=== PATIENT | female | born 1960 | race Caucasian/White ===

== ENCOUNTER 2016-08-12 09:22 | Emergency (ER) | payer BC ==
[~2016-08-12] VITALS: Wt 78.0 kg
[~2016-08-12 09:22] MED LIST: ACET325T33 PO; ACET500C5 PO; CIPR500T4 PO; ELEC100080 PO; FAMO-18 PO; HYD25 PO; HYDR-3498 PO; HYDR12.58 PO; ONDA4TAB8 PO; SIMV20TA6 PO; SODI44SP11 NS
[2016-08-12] MEDS ORDERED: KETOROLAC 30 MG INJ IM STA (10:08)
[2016-08-12 10:47] LABS: ADD UMIC YES; URINE BILIRUBIN (Dip) NEGATIVE (NEGATIVE); URINE BLOOD (Dip) TRACE (NEGATIVE); URINE COLOR LT. YELLOW (YELLOW); URINE GLUCOSE (Dip) NEGATIVE (NEGATIVE); URINE KETONES (Dip) NEGATIVE (NEGATIVE); URINE LEUKOCYTE ESTERASE (Dip) 2+ (NEGATIVE); URINE NITRITE (Dip) NEGATIVE (NEGATIVE); URINE TOTAL PROTEIN (Dip) NEGATIVE (NEGATIVE); URINE UROBILINOGEN (Dip) 0.2 E.U./dL (0.1-1.0)
[2016-08-12 10:56] LABS: URINE RBCS 0-2 /HPF (0)
--- NOTE | 2016-08-12 11:04 | RADRPT ---
PROCEDURE: CT Abdomen and Pelvis without contrast. CLINICAL INDICATION: Right lower quadrant abdominal pain for 3 days. TECHNIQUE: Multiple contiguous axial CT images of the abdomen and pelvis were obtained without the administration of intravenous contrast. Coronal and sagittal reconstructions were also performed. CTDIvol (mGy): 15.91; Total Exam DLP (mGy-cm): 824.52. One or more of the following dose reduction techniques were utilized: - Automated exposure control. - Adjustment of the mA and/or kV according to patient size. - Use of iterative reconstruction technique. COMPARISON: 04/06/2015. FINDINGS: Limited imaging of the lower thorax is unremarkable. The liver and spleen are homogeneous in density aside from a small parenchymal calcification within the medial segment of the left hepatic lobe, which is unchanged and benign. The gallbladder, pancre as and adrenal glands are unremarkable aside from minimal calcification within the left adrenal glan d, which is unchanged. The kidneys are symmetric in size. There are no nephroureteral stones. There is no hydronephrosis o r abnormal perinephric inflammation. The abdominal aorta is normal in caliber. There is no periaortic / retroperitoneal lymphadenopathy. The stomach and small and large intestines are unremarkable. The appendix is normal. There are no focal inflammatory changes of the mesentery. There is no mesenteric lymphadenopathy. There is no a scites. The bladder, uterus and adnexa are unremarkable. There is no free pelvic fluid. There is no pelvic sidewall or inguinal lymphadenopathy. Multilevel degenerative disk disease of the lumbar spine is present and unchanged. Trace retrolisth esis of L3 over L4 is unchanged. Body wall soft tissues are unremarkable. IMPRESSION: No evidence of abdominopelvic mass, lymphadenopathy or acute inflammatory pathology. RPTAT: HLST .Yue Reed MD, MD Date Time Electronically viewed and signed by .Yue Reed MD, on 08/12/2016 11:03 .T/
[2016-08-12] MEDS ORDERED: IBUP-1542 PO (11:14)
[2016-08-12] MEDS ORDERED: CEPH-443 PO (11:14)
[2016-08-12 11:27] VITALS: BP 142/98; PULSE 60; RESP 18; TEMP 98.6
[2016-08-12] MEDS ORDERED: CEPHALEXIN 500 MG CAP PO ONE (11:30)
--- NOTE | 2016-08-12 15:10 | ERD ---
ER Documentation Chief Complaint Date/Time DATE: 08/12/16 TIME: 15:08 Chief Complaint ABD PAIN X3 DAYS HPI 56-year-old woman complains of suprapubic abdominal pain 3 days. Pain is been constant nonradiating and nonexertional. Patient denies weight loss, no hematuria, no fevers or chills, no vaginal discharge. Patient denies chest pain or shortness of breath. ROS All systems reviewed and are negative except as per history of present illness. Medications Home Meds Active Scripts Ibuprofen* (Motrin*) 600 Mg Tab, 600 MG PO Q8 for PAIN, #30 TAB Prov:MICHELLE CASTREJON MD 08/12/16 Cephalexin* (Keflex*) 500 Mg Capsule, 500 MG PO TID for 5 Days, CAP Prov:MICHELLE CASTREJON MD 08/12/16 Hydrocodone Bit-Acetaminophen* ([place]*) 5-325 Mg Tab, 1 TAB PO Q6 Y for PAIN, # 10 TAB Prov:KAMILLE RUBIO PA-C 08/31/15 Acetaminophen* (Tylophen*) 500 Mg Capsule, 500 MG PO Q6H Y for PAIN, #30 TAB 0 Refills Prov:ROSANGELA STANFORD PA-C 05/09/15 Sodium Chloride (Saline Nasal [place]) 45 Ml [place], 45 ML NS TID, #1 SPRAY 2 Refills Prov:ROSANGELA STANFORD PA-C 05/09/15 Famotidine* (Pepcid*) 20 Mg Tablet, 20 MG PO BID for 4 Days, TAB Prov:CHRISTIANA WHEELER PA-C 04/06/15 Acetaminophen* (Tylenol*) 325 Mg Tablet, 2 TAB PO Q6 Y for PAIN AND OR ELEVATED TEMP, #20 TAB Prov:CHRISTIANA WHEELER PA-C 04/06/15 Electrolyte,Oral (Pedialyte) 1,000 Ml Solution, 100 ML PO Q6 Y for vomiting, # 100 ML Prov:CHRISTIANA WHEELER PA-C 04/06/15 Ciprofloxacin Hcl* (Ciprofloxacin Hcl*) 500 Mg Tablet, 500 MG PO BID for 7 Days , TAB Prov:CHRISTIANA WHEELER PA-C 04/06/15 Ondansetron Hcl* (Zofran*) 4 Mg Tablet, 4 MG PO Q6H for NAUSEA AND/OR VOMITING, #30 TAB Prov:CHRISTIANA WHEELER PA-C 04/06/15 Acetaminophen* (Tylenol*) 325 Mg Tablet, 2 TAB PO Q8 Y for PAIN AND OR ELEVATED TEMP, #20 TAB Prov:ERICKA LOPEZ MD 04/02/15 Hydrochlorothiazide* (Hydrochlorothiazide*) 25 Mg Tab, 25 MG PO DAILY, #30 TAB Prov:ERICKA LOPEZ MD 04/02/15 Reported Medications Simvastatin (Simvastatin) 20 Mg Tablet, 20 MG PO 04/02/15 Hydrochlorothiazide* (Hydrochlorothiazide*) 12.5 Mg Tablet, 12.5 MG PO DAILY 04/02/15 Allergies Allergies: Coded Allergies: No Known Drug Allergies (Verified Allergy, Mild, 05/09/15) PMhx/Soc Hypercholesterolemia, hypertension History of Surgery: No Hx Neurological Disorder: No Hx Respiratory Disorders: Yes (ASTHMA ) Hx Cardiac Disorders: No (htn) Hx Psychiatric Problems: No Hx Miscellaneous Medical Probl: No (high cholestrol) Hx Alcohol Use: No Hx Substance Use: No Hx Tobacco Use: No FmHx Family History: No diabetes Physical Exam Vitals Vital Signs Date Time Temp Pulse Resp B/P Pulse Ox O2 Delivery O2 Flow Rate FiO2 08/12/16 11:27 98.6 60 18 142/98 100 Room Air 08/12/16 09:37 99.4 68 17 151/78 97 Physical Exam GENERAL: Well-developed, well-nourished, well-hydrated, in no apparent distress , looks nontoxic in appearance HEENT: Moist mucous membranes, pink conjunctiva, no cervical spine tenderness or step-off deformities, no goiter, no jaundice or icterus, extraocular movements intact without pain. No submandibular induration, and no pharyngeal erythema NEURO: Alert and oriented 3, cranial nerves II through XII intact bilaterally, pupils equal round reactive to light, no focal deficits or facial asymmetry, sensation intact distally Strength 5/5 in upper and lower extremities bilaterally CARDIAC: Regular rate and rhythm, no murmurs rubs or gallops LUNGS: Clear bilaterally no wheezing crackles or stridor ABDOMEN: Soft nontender, no guarding, no rigidity, no rebound, no psoas sign no obturator sign. Normoactive bowel sounds SKIN: Warm and dry to touch, no abrasions, contusions, or hematomas, no lacerations, no ecchymosis, no target lesions, and without ulcers EXTREMITIES: No clubbing cyanosis or edema, calves are bilaterally symmetrical, no Homans sign, no popliteal cord sign. Distal pulses equal and bilateral PSYCH: Normal affect without agitation or irritability Results 24 hrs Laboratory Tests Test 08/12/16 10:26 Urine Bilirubin NEGATIVE Urine Clarity CLEAR Urine Color LT. YELLOW Urine Epithelial Cells OCCASIONAL Urine Glucose NEGATIVE% Urine Hemoglobin TRACE Urine Ketones NEGATIVE Urine Leukocyte Esterase 2+ Urine Microscopic RBC 0-2/HPF Urine Microscopic WBC 2-5/HPF Urine Nitrite NEGATIVE Urine Specific [place] 1.015 Urine Total Protein NEGATIVE Urine Urobilinogen 0.2 E.U./dL Urine pH 7.0 Current Medications Medications (Trade) Dose Ordered Sig/Sallie Route PRN Reason Start Time Stop Time Status Last Admin Dose Admin Ketorolac Tromethamine (Toradol) 30 mg ONCE STAT IM 08/12/16 10:08 08/12/16 10:09 DC 08/12/16 10:37 Cephalexin (Keflex) 500 mg ONCE ONCE PO 08/12/16 11:30 08/12/16 11:30 DC 08/12/16 11:23 Procedures/MDM I administered Toradol 30 mg intramuscular injection with good pain control. CT scan of the abdomen and pelvis was performed there was no acute inflammatory infectious pathology noted. Urine analysis was positive for infection so I treated her here with cephalexin 500 mg p.o. Differential diagnoses considered, included but not limited to acute coronary syndrome, pulmonary embolism, aortic dissection, abdominal aortic aneurysm, sepsis, stroke, meningitis, encephalitis, pneumonia, appendicitis, cholecystitis , bowel obstruction, pyelonephritis, nephrolithiasis, cystitis, as well as metabolic, hematologic, and electrolyte abnormalities. As well as abscess, cellulitis, fractures, and dislocations. Patient feels much better at this time, and vital signs are normal, symptoms have improved. I did give strict instructions to return to the ED if symptoms continue or worsen, patient will otherwise follow-up with primary care physician. Patient understood instructions and agreed to plan. Departure Diagnosis: Primary Impression: UTI (urinary tract infection) Urinary tract infection type: acute cystitis Hematuria presence: without hematuria Qualified Code: N30.00 - Acute cystitis without hematuria Condition: Good Patient Instructions: Bladder Infection, Female (Adult) Referrals: TOMAS NOBLES (PCP) MICHELLE CASTREJON MD 12, 2017 15:10
== END 2016-08-12 11:28 | disposition home or self-care (01) ==
LOC: E/R 09:22
DX: N30.00 Acute cystitis without hematuria (principal); J45.909 Unspecified asthma, uncomplicated; I10 Essential (primary) hypertension
CPT/HCPCS: 74176; 81001; 96372; 99285; J1885; Z7610; 81003

== ENCOUNTER 2016-08-22 12:20 | Emergency (ER) | payer BC ==
[~2016-08-22] VITALS: Ht 157.5 cm; Wt 78.0 kg
[~2016-08-22 12:20] MED LIST changes: +CEPH-443 PO; +IBUP-1542 PO
[2016-08-22 12:29] VITALS: Ht 157.5 cm; Wt 78.0 kg
[2016-08-22 14:52] LABS: URINE BLOOD (Dip) POC 1+ (NEGATIVE)
[2016-08-22] MEDS ORDERED: HYDROCODONE/APAP (5/325) TAB PO ONE (15:00)
--- NOTE | 2016-08-22 15:51 | RADRPT ---
PROCEDURE: US Pelvis Non-OB CLINICAL INDICATION: Right pelvic pain TECHNIQUE: Images were taken during real time trans pelvic and endovaginal interrogation. Color-fl ow and Doppler interrogation of the ovaries was performed. COMPARISON: Comparison with CT done 08/12/2016. The CT demonstrated the uterus to be deviated rightward and no adnexal mass was identified. No free fluid was evident. FINDINGS: Uterus: appears normal in size measuring 7.3 x 4.9 x 83.8 cm. The endometrial stripe measures 0.5 cm in AP diameter. Ovaries: Neither ovary was identified. Adnexa: No adnexal mass is identified. Free intraperitoneal fluid: None visualized. IMPRESSION: 1. Normal sized uterus with a 0.5 cm endometrial stripe. 2. Neither ovary was identified. 3. No adnexal mass or free fluid was evident. Physician Don Date Time Electronically viewed and signed by Physician Don on 08/22/2016 15:51 /
[2016-08-22] MEDS ORDERED: IBUP-1542 PO (16:23)
--- NOTE | 2016-08-22 16:23 | ERD ---
ER Documentation Chief Complaint Date/Time DATE: 08/22/16 Chief Complaint Right-sided pelvic pain HPI The patient is a 56-year-old female who presents to the Emergency Department with complaint of right-sided pelvic pain. The patient reports that approximately 2 weeks ago she developed the same pelvic pain, with associated dysuria. She was evaluated in the Emergency Department on 08/12/2016 for these symptoms, at which time urinalysis and CT imaging was performed. Urinalysis revealed 2+ urine leukocyte esterase with WBCs. CT abdomen and pelvis noted no evidence of abdominopelvic mass, lymphadenopathy or acute inflammatory pathology. The patient was diagnosed with a urinary tract infection and discharged home with a prescription for Keflex, which she took as directed. The patient notes that since taking the antibiotics, her dysuria has completely resolved, and her pelvic pain improved. However, two days ago the patient began to experience similar right-sided pelvic pains once again, and therefore presents to the ED requesting further evaluation. She rates her current pain as 1/10. She denies chest pain, palpitations, shortness of breath. Denies fevers or chills. Denies dysuria, hematuria or flank pain. Denies weight loss, lethargy, fatigue. Denies nausea, vomiting or diarrhea. Denies vaginal bleeding or new vaginal discharge. ROS All systems reviewed and are negative except as per history of present illness. Medications Home Meds Active Scripts Hydrocodone/Acetaminophen ([place] 5-325 Tablet) 1 Each Tablet, 1 EACH PO Q6, #8 TAB Prov:SHERMAN BARRETO PA-C 08/22/16 Ibuprofen* (Motrin*) 600 Mg Tab, 600 MG PO Q6, #20 TAB Prov:SHERMAN BARRETO PA-C 08/22/16 Ibuprofen* (Motrin*) 600 Mg Tab, 600 MG PO Q8 for PAIN, #30 TAB Prov:MICHELLE CASTREJON MD 08/12/16 Cephalexin* (Keflex*) 500 Mg Capsule, 500 MG PO TID for 5 Days, CAP Prov:MICHELLE CASTREJON MD 08/12/16 Hydrocodone Bit-Acetaminophen* ([place]*) 5-325 Mg Tab, 1 TAB PO Q6 Y for PAIN, # 10 TAB Prov:KAMILLE RUBIO PA-C 08/31/15 Acetaminophen* (Tylophen*) 500 Mg Capsule, 500 MG PO Q6H Y for PAIN, #30 TAB 0 Refills Prov:ROSANGELA STANFORD PA-C 05/09/15 Sodium Chloride (Saline Nasal [place]) 45 Ml [place], 45 ML NS TID, #1 SPRAY 2 Refills Prov:ROSANGELA STANFORD PA-C 05/09/15 Famotidine* (Pepcid*) 20 Mg Tablet, 20 MG PO BID for 4 Days, TAB Prov:CHRISTIANA WHEELER PA-C 04/06/15 Acetaminophen* (Tylenol*) 325 Mg Tablet, 2 TAB PO Q6 Y for PAIN AND OR ELEVATED TEMP, #20 TAB Prov:CHRISTIANA WHEELER PA-C 04/06/15 Electrolyte,Oral (Pedialyte) 1,000 Ml Solution, 100 ML PO Q6 Y for vomiting, # 100 ML Prov:CHRISTIANA WHEELER PA-C 04/06/15 Ciprofloxacin Hcl* (Ciprofloxacin Hcl*) 500 Mg Tablet, 500 MG PO BID for 7 Days , TAB Prov:CHRISTIANA WHEELER PA-C 04/06/15 Ondansetron Hcl* (Zofran*) 4 Mg Tablet, 4 MG PO Q6H for NAUSEA AND/OR VOMITING, #30 TAB Prov:CHRISTIANA WHEELER PA-C 04/06/15 Acetaminophen* (Tylenol*) 325 Mg Tablet, 2 TAB PO Q8 Y for PAIN AND OR ELEVATED TEMP, #20 TAB Prov:ERICKA LOPEZ MD 04/02/15 Hydrochlorothiazide* (Hydrochlorothiazide*) 25 Mg Tab, 25 MG PO DAILY, #30 TAB Prov:ERICKA LOPEZ MD 04/02/15 Reported Medications Simvastatin (Simvastatin) 20 Mg Tablet, 20 MG PO 04/02/15 Hydrochlorothiazide* (Hydrochlorothiazide*) 12.5 Mg Tablet, 12.5 MG PO DAILY 04/02/15 Allergies Allergies: Coded Allergies: No Known Drug Allergies (Verified Allergy, Mild, 05/09/15) PMhx/Soc History of Surgery: No Hx Neurological Disorder: No Hx Respiratory Disorders: Yes (ASTHMA ) Hx Cardiac Disorders: No (htn) Hx Psychiatric Problems: No Hx Miscellaneous Medical Probl: No (high cholestrol) Hx Alcohol Use: No Hx Substance Use: No Hx Tobacco Use: No Smoking Status: Never smoker Physical Exam Vitals Vital Signs Date Time Temp Pulse Resp B/P Pulse Ox O2 Delivery O2 Flow Rate FiO2 08/22/16 16:32 98.2 74 18 148/69 99 Room Air 08/22/16 12:29 98.6 71 18 156/85 99 Physical Exam GENERAL: Well-developed, well-nourished, in no acute distress HEENT: Head is normocephalic, atraumatic. No scleral pallor or icterus. Conjunctiva pink. Moist mucous membranes. NECK: Supple. RESPIRATORY: Lungs are clear to auscultation bilaterally. Equal breath sounds. Normal expiratory effort. CARDIOVASCULAR: Regular rate and rhythm. GASTROINTESTINAL: Abdomen is soft, nontender, and nondistended. No guarding, no rebound tenderness. Normal bowel sounds. No gross peritonitis. No tenderness at McBurney's point. FLANK: No CVA tenderness. EXTREMITIES: No clubbing, cyanosis, or edema. Normal skin perfusion. Moving all extremities. NEUROLOGIC: The patient is alert, awake, and oriented. INTEGUMENT: Skin is clean, dry and intact. No rashes, lesions, vesicles or petechiae present. PSYCHIATRIC: Appropriate; Cooperative. Results 24 hrs Laboratory Tests Test 08/22/16 14:51 Bedside Urine pH (LAB) 5.5 Bedside Urine Protein (LAB) Negative Bedside Urine Glucose (UA) Negative Bedside Urine Ketones (LAB) Negative Bedside Urine Blood 1+ Bedside Urine Nitrite (LAB) Negative Bedside Urine Leukocyte Esterase (L Trace Current Medications Medications (Trade) Dose Ordered Sig/Sallie Route PRN Reason Start Time Stop Time Status Last Admin Dose Admin Acetaminophen/ Hydrocodone Bitart ([place] (5/325)) 1 tab ONCE ONCE PO 08/22/16 15:00 08/22/16 15:01 DC 08/22/16 14:48 Procedures/MDM DIAGNOSTIC TESTS AND INTERPRETATION: PROCEDURE: US Pelvis Non-OB CLINICAL INDICATION: Right pelvic pain TECHNIQUE: Images were taken during real time trans pelvic and endovaginal interrogation. Color-flow and Doppler interrogation of the ovaries was performed. COMPARISON: Comparison with CT done 08/12/2016. The CT demonstrated the uterus to be deviated rightward and no adnexal mass was identified. No free fluid was evident. FINDINGS: Uterus: appears normal in size measuring 7.3 x 4.9 x 83.8 cm. The endometrial stripe measures 0.5 cm in AP diameter. Ovaries: Neither ovary was identified. Adnexa: No adnexal mass is identified. Free intraperitoneal fluid: None visualized. IMPRESSION: 1. Normal sized uterus with a 0.5 cm endometrial stripe. 2. Neither ovary was identified. 3. No adnexal mass or free fluid was evident. Physician Don Date Time Electronically viewed and signed by Physician Don on 08/22/2016 15:51 MEDICAL DECISION MAKING: This is a 56-year-old female presenting to the Emergency Department with RIGHT pelvic pain. The patient had no significant abnormalities noted on physical examination and vital signs were stable. No significant findings were noted on CT abdomen and pelvis performed 10 days ago, and no significant findings noted on ultrasound imaging performed today. Urine dip noted trace urine leukocyte esterase. However, patient with no urinary symptoms, and recently completed a course of Keflex for a urinary tract infection. Urine culture will be sent, but doubt urinary tract infection at this time. Patient with no flank pain, no CVA tenderness, no systemic symptoms, doubt pyelonephritis. The patient's condition improved during their stay after the administration of medications and serial evaluations with stable vital signs. On reevaluation, the patient reports no new complaints and decreased pain. Upon my review and interpretation of the patient's presentation, clinical data, and overall ER course, I believe the patient's symptoms are most consistent with pelvic pain, uncertain etiology. Doubt small bowel obstruction, patient is passing flatus, abdomen is non-distended. Doubt appendicitis, patient has no McBurney's point tenderness, no guarding, non-surgical abdomen, no tenderness over the RLQ. Doubt diverticulitis, exam inconsistent. Doubt ischemic bowel, no pain out of proportion to examination. Doubt torsion, symptoms and examination inconsistent. At this time, the patient is in stable condition and therefore can be discharged home with prescriptions for Ibuprofen and [place] and strict return precautions for signs of deteriorating or worsening condition. The patient is advised to follow up with her TRIPPER within 1-2 days for reevaluation and further management, or return to the ER sooner for any worsening symptoms. I shared all laboratory and diagnostic imaging studies with the patient at length and in great detail, and the patient verbally understands and agrees with the plan for further observation and care as an outpatient. At the time of discharge, all questions were answered. Departure Diagnosis: Primary Impression: Pelvic pain Condition: Stable Patient Instructions: Pelvic Pain, Unknown Cause Additional Instructions: Llame al doctor MAKENNY y zeb olivia REMA PARA DENTRO DE 1-2 WELLS.Dgale a la secretaria que nosotros le instruimos hacer esta rema.Avise o llame si petty condicin se empeora antes de la rema. Regresa aqui si peor o no mejor. SHERMAN BARRETO PA-C Aug 22, 2016 16:23
[2016-08-22] MEDS ORDERED: HYDR-906 PO (16:24)
[2016-08-22 16:32] VITALS: BP 148/69; PULSE 74; RESP 18; TEMP 98.2
== END 2016-08-22 16:33 | disposition home or self-care (01) ==
LOC: FTE 12:20
DX: R10.2 Pelvic and perineal pain (principal); I10 Essential (primary) hypertension; J45.909 Unspecified asthma, uncomplicated
CPT/HCPCS: 76830; 76856; 81003; Z7610

== ENCOUNTER 2016-08-23 13:00 | Emergency (ER) | payer SELFPAY ==
[~2016-08-23] VITALS: Wt 89.0 kg
[~2016-08-23 13:00] MED LIST changes: +HYDR-906 PO
--- NOTE | 2016-08-23 20:20 | ERD ---
ER Documentation Chief Complaint Date/Time DATE: 08/23/16 TIME: 20:14 Chief Complaint GENERALIZED ABD PAIN X 15 DAYS HPI This is a 56-year-old woman referred here by her quality assurance qa lab technician for abdominal pain. Patient states that her posterior sacrum and suprapubic area when describing the pain and because it was severe at the clinic her quality assurance qa lab technician referred her here for evaluation. This patient was seen and evaluated about 10 days ago a full workup revealed a urinary tract infection and a CT scan of the abdomen and pelvis performed at that time was unremarkable. Patient used antibiotics as prescribed and states dysuria has resolved. Patient was also seen yesterday for similar complaints of lower abdominal pain and pelvic ultrasound was performed yesterday and was unremarkable. Patient denies dysuria , no fevers or chills, no vomiting or diarrhea, no chest pain or shortness of breath, no weight loss. Yesterday patient was given a prescription of [place] which she has yet to fill to help control pain. ROS All systems reviewed and are negative except as per history of present illness. Medications Home Meds Active Scripts Hydrocodone/Acetaminophen ([place] 5-325 Tablet) 1 Each Tablet, 1 EACH PO Q6, #8 TAB Prov:SHERMAN BARRETO PA-C 08/22/16 Ibuprofen* (Motrin*) 600 Mg Tab, 600 MG PO Q6, #20 TAB Prov:SHERMAN BARRETO PA-C 08/22/16 Ibuprofen* (Motrin*) 600 Mg Tab, 600 MG PO Q8 for PAIN, #30 TAB Prov:MICHELLE CASTREJON MD 08/12/16 Cephalexin* (Keflex*) 500 Mg Capsule, 500 MG PO TID for 5 Days, CAP Prov:MICHELLE CASTREJON MD 08/12/16 Hydrocodone Bit-Acetaminophen* ([place]*) 5-325 Mg Tab, 1 TAB PO Q6 Y for PAIN, # 10 TAB Prov:KAMILLE RUBIO PA-C 08/31/15 Acetaminophen* (Tylophen*) 500 Mg Capsule, 500 MG PO Q6H Y for PAIN, #30 TAB 0 Refills Prov:ROSANGELA STANFORD PA-C 05/09/15 Sodium Chloride (Saline Nasal [place]) 45 Ml [place], 45 ML NS TID, #1 SPRAY 2 Refills Prov:ROSANGELA STANFORD PA-C 05/09/15 Famotidine* (Pepcid*) 20 Mg Tablet, 20 MG PO BID for 4 Days, TAB Prov:CHRISTIANA WHEELER PA-C 04/06/15 Acetaminophen* (Tylenol*) 325 Mg Tablet, 2 TAB PO Q6 Y for PAIN AND OR ELEVATED TEMP, #20 TAB Prov:CHRISTIANA WHEELER PA-C 04/06/15 Electrolyte,Oral (Pedialyte) 1,000 Ml Solution, 100 ML PO Q6 Y for vomiting, # 100 ML Prov:CHRISTIANA WHEELER PA-C 04/06/15 Ciprofloxacin Hcl* (Ciprofloxacin Hcl*) 500 Mg Tablet, 500 MG PO BID for 7 Days , TAB Prov:CHRISTIANA WHEELER PA-C 04/06/15 Ondansetron Hcl* (Zofran*) 4 Mg Tablet, 4 MG PO Q6H for NAUSEA AND/OR VOMITING, #30 TAB Prov:CHRISTIANA WHEELER PA-C 04/06/15 Acetaminophen* (Tylenol*) 325 Mg Tablet, 2 TAB PO Q8 Y for PAIN AND OR ELEVATED TEMP, #20 TAB Prov:ERICKA LOPEZ MD 04/02/15 Hydrochlorothiazide* (Hydrochlorothiazide*) 25 Mg Tab, 25 MG PO DAILY, #30 TAB Prov:ERICKA LOPEZ MD 04/02/15 Reported Medications Simvastatin (Simvastatin) 20 Mg Tablet, 20 MG PO 04/02/15 Hydrochlorothiazide* (Hydrochlorothiazide*) 12.5 Mg Tablet, 12.5 MG PO DAILY 04/02/15 Allergies Allergies: Coded Allergies: No Known Drug Allergies (Verified Allergy, Mild, 05/09/15) PMhx/Soc Gastritis, anxiety, History of Surgery: No Hx Neurological Disorder: No Hx Respiratory Disorders: Yes (ASTHMA ) Hx Cardiac Disorders: No (htn) Hx Psychiatric Problems: No Hx Miscellaneous Medical Probl: No (high cholestrol) Hx Alcohol Use: No Hx Substance Use: No Hx Tobacco Use: No Smoking Status: Never smoker FmHx Family History: No diabetes Physical Exam Vitals Vital Signs Date Time Temp Pulse Resp B/P Pulse Ox O2 Delivery O2 Flow Rate FiO2 08/23/16 13:16 98.0 63 18 137/84 99 Physical Exam GENERAL: Well-developed, well-nourished, well-hydrated, in no apparent distress , looks nontoxic in appearance HEENT: Moist mucous membranes, pink conjunctiva, no cervical spine tenderness or step-off deformities, no goiter, no jaundice or icterus, extraocular movements intact without pain. No submandibular induration, and no pharyngeal erythema NEURO: Alert and oriented 3, cranial nerves II through XII intact bilaterally, pupils equal round reactive to light, no focal deficits or facial asymmetry, sensation intact distally Strength 5/5 in upper and lower extremities bilaterally CARDIAC: Regular rate and rhythm, no murmurs rubs or gallops LUNGS: Clear bilaterally no wheezing crackles or stridor ABDOMEN: Soft nontender, no guarding, no rigidity, no rebound, no psoas sign no obturator sign. Normoactive bowel sounds SKIN: Warm and dry to touch, no abrasions, contusions, or hematomas, no lacerations, no ecchymosis, no target lesions, and without ulcers EXTREMITIES: No clubbing cyanosis or edema, calves are bilaterally symmetrical, no Homans sign, no popliteal cord sign. Distal pulses equal and bilateral PSYCH: Normal affect without agitation or irritability Procedures/MDM I reviewed her recent medical history including all the imaging studies. I discussed her case with her and gave her copies of her imaging studies and recent workup. I explained to her unfortunately there is nothing more I can do from here in the emergency department and her best course of action will be filling and using her medications as prescribed and following up with her primary care physician. I also spoke to her quality assurance qa lab technician Dr. Foster at [phone]. We discussed the recent imaging results and previous workups. She agreed that there is no indication at this time for any emergency department intervention, imaging, or need for admission. She will follow-up with the patient as an outpatient and also recommended that the patient follow-up with her PMD. Differential diagnoses considered, included but not limited to acute coronary syndrome, pulmonary embolism, aortic dissection, abdominal aortic aneurysm, sepsis, stroke, meningitis, encephalitis, pneumonia, appendicitis, cholecystitis , bowel obstruction, pyelonephritis, nephrolithiasis, cystitis, as well as metabolic, hematologic, and electrolyte abnormalities. As well as abscess, cellulitis, fractures, and dislocations. Patient feels much better at this time, and vital signs are normal, symptoms have improved. I did give strict instructions to return to the ED if symptoms continue or worsen, patient will otherwise follow-up with primary care physician. Patient understood instructions and agreed to plan. Departure Diagnosis: Primary Impression: Chronic pain Chronic pain type: chronic pain syndrome Qualified Code: G89.4 - Chronic pain syndrome Additional Impression: Pelvic pain Condition: Good Patient Instructions: Chronic Pain MICHELLE CASTREJON MD Aug 23, 2016 20:20
== END 2016-08-23 15:24 | disposition home or self-care (01) ==
LOC: E/R 13:00
DX: G89.4 Chronic pain syndrome (principal); R10.2 Pelvic and perineal pain; J45.909 Unspecified asthma, uncomplicated; I10 Essential (primary) hypertension
CPT/HCPCS: 99282

== ENCOUNTER 2018-09-17 12:15 | Emergency (ER) | payer BC ==
[~2018-09-17] VITALS: Ht 157.5 cm; Wt 75.4 kg
[~2018-09-17 12:15] MED LIST changes: -FAMO-18 PO; +FAMO-96 PO; -HYD25 PO; +HYDR-4011 PO; -HYDR-906 PO; +HYDR25TA6 PO; +SIMV20TA20 PO; -SIMV20TA6 PO
[2018-09-17 12:19] VITALS: BP 140/73; PULSE 70; RESP 20; Ht 157.5 cm; Wt 75.4 kg
[2018-09-17] MEDS ORDERED: NITR-58 PO (13:55)
--- NOTE | 2018-09-17 14:14 | ERD ---
ER Documentation Chief Complaint Chief Complaint C/O pelvic pain with dysuria x2 weeks. No hematuria HPI 58-year-old female presenting with dysuria times 2 weeks. No hematuria. Some mild suprapubic tenderness with urinary frequency. No fevers. History of hypertension. NKDA. Surgical history denies. Social history denies ROS All systems reviewed and are negative except as per history of present illness. Medications Home Meds Active Scripts Nitrofurantoin Monohyd Macrocr* (Macrobid*) 100 Mg Capsr, 100 MG PO BID for 14 Days, CAP Prov:CHRISTIANA WHEELER PA-C 09/17/18 Cephalexin* (Keflex*) 500 Mg Capsule, 500 MG PO BID for 7 Days, CAP Prov:MARIA C SYED 09/24/17 Hydrocodone/Acetaminophen ([place] 5-325 Tablet) 1 Each Tablet, 1 EACH PO Q6, #8 TAB Prov:SHERMAN BARRETO PA-C 08/22/16 Ibuprofen* (Motrin*) 600 Mg Tab, 600 MG PO Q6, #20 TAB Prov:SHERMAN BARRETO PA-C 08/22/16 Ibuprofen* (Motrin*) 600 Mg Tab, 600 MG PO Q8 for PAIN, #30 TAB Prov:MICHELLE CASTREJON MD 08/12/16 Cephalexin* (Keflex*) 500 Mg Capsule, 500 MG PO TID for 5 Days, CAP Prov:MICHELLE CASTREJON MD 08/12/16 Hydrocodone Bit-Acetaminophen* ([place]*) 5-325 Mg Tab, 1 TAB PO Q6 PRN for PAIN, #10 TAB Prov:KAMILLE RUBIO PA-C 08/31/15 Acetaminophen* (Tylophen*) 500 Mg Capsule, 500 MG PO Q6H PRN for PAIN, #30 TAB 0 Refills Prov:ROSANGELA STANFORD PA-C 05/09/15 Sodium Chloride (Saline Nasal [place]) 45 Ml [place], 45 ML NS TID, #1 SPRAY 2 Refills Prov:ROSANGELA STANFORD PA-C 05/09/15 Famotidine* (Pepcid*) 20 Mg Tablet, 20 MG PO BID for 4 Days, TAB Prov:CHRISTIANA WHEELER PA-C 04/06/15 Acetaminophen* (Tylenol*) 325 Mg Tablet, 2 TAB PO Q6 PRN for PAIN AND OR ELEVATED TEMP, #20 TAB Prov:CHRISTIANA WHEELER PA-C 04/06/15 Electrolyte,Oral (Pedialyte) 1,000 Ml Solution, 100 ML PO Q6 PRN for vomiting, #100 ML Prov:CHRISTIANA WHEELER PA-C 04/06/15 Ciprofloxacin Hcl* (Ciprofloxacin Hcl*) 500 Mg Tablet, 500 MG PO BID for 7 Days, TAB Prov:CHRISTIANA WHEELER PA-C 04/06/15 Ondansetron Hcl* (Zofran*) 4 Mg Tablet, 4 MG PO Q6H for NAUSEA AND/OR VOMITING, #30 TAB Prov:CHRISTIANA WHEELER PA-C 04/06/15 Acetaminophen* (Tylenol*) 325 Mg Tablet, 2 TAB PO Q8 PRN for PAIN AND OR ELEVATED TEMP, #20 TAB Prov:ERICKA LOPEZ MD 04/02/15 Hydrochlorothiazide* (Hydrochlorothiazide*) 25 Mg Tab, 25 MG PO DAILY, #30 TAB Prov:ERICKA LOPEZ MD 04/02/15 Reported Medications Simvastatin (Simvastatin) 20 Mg Tablet, 20 MG PO 04/02/15 Hydrochlorothiazide* (Hydrochlorothiazide*) 12.5 Mg Tablet, 12.5 MG PO DAILY 04/02/15 Allergies Allergies: Coded Allergies: No Known Drug Allergies (Verified Allergy, Mild, 09/17/18) PMhx/Soc History of Surgery: No Hx Neurological Disorder: No Hx Respiratory Disorders: Yes (ASTHMA ) Hx Cardiac Disorders: Yes (HTN) Hx Psychiatric Problems: No Hx Miscellaneous Medical Probl: No (high cholestrol) Hx Alcohol Use: No Hx Substance Use: No Hx Tobacco Use: No Smoking Status: Never smoker FmHx Family History: No diabetes, No coronary disease, No other Physical Exam Vitals Vital Signs Date Temp Pulse Resp B/P (MAP) Pulse Ox O2 O2 Flow FiO2 Time Delivery Rate 09/17/18 97.5 70 20 140/73 97 12:19 (95) Physical Exam GENERAL: The patient is well-appearing, well-nourished, in no acute distress HEENT: Atraumatic. Conjunctivae are pink. Pupils equal, round, and reactive to light. There is no scleral icterus. Tympanic membranes clear bilaterally. Oropharynx clear. NECK: C-spine is soft and supple. There is no meningismus. There is no cervical lymphadenopathy. CHEST: Clear to auscultation bilaterally. There are no rales, wheezes or rhonchi. HEART: Regular rate and rhythm. No murmurs, clicks, rubs or gallops. No S3 or S4. ABDOMEN: Normal active bowel sounds. No distention. No organomegaly or tenderness palpation of the suprapubic region. No CVA tenderness. Results 24 hrs Laboratory Tests Test 09/17/18 13:38 Bedside Urine pH (LAB) 5.5 Bedside Urine Protein (LAB) Negative Bedside Urine Glucose (UA) Negative Bedside Urine Ketones (LAB) Negative Bedside Urine Blood Trace-lysed Bedside Urine Nitrite (LAB) Negative Bedside Urine Leukocyte Esterase (L 1+ Procedures/MDM DM: 58-year-old female presenting with pelvic pain and dysuria. Patient has positive findings of urinary tract infection on urinalysis. I have low suspicion for pyelonephritis. I have low suspicion for pelvic emergency. Patient is discharged with strict ER precautions and told to follow-up with primary care within 1-2 days for close evaluation. All questions answered at discharge Departure Diagnosis: Primary Impression: UTI (urinary tract infection) Condition: Stable Patient Instructions: Understanding Urinary Tract Infections (UTIs) Referrals: COMMUNITY CLINICS YOU HAVE RECEIVED A MEDICAL SCREENING EXAM AND THE RESULTS INDICATE THAT YOU DO NOT HAVE A CONDITION THAT REQUIRES URGENT TREATMENT IN THE EMERGENCY DEPARTMENT. FURTHER EVALUATION AND TREATMENT OF YOUR CONDITION CAN WAIT UNTIL YOU ARE SEEN IN YOUR DOCTORS OFFICE WITHIN THE NEXT 1-2 DAYS. IT IS YOUR RESPONSIBILITY TO MAKE AN APPOINTMENT FOR FOLOW-UP CARE. IF YOU HAVE A PRIMARY DOCTOR --you should call your primary doctor and schedule an appointment IF YOU DO NOT HAVE A PRIMARY DOCTOR YOU CAN CALL OUR PHYSICIAN REFERRAL HOTLINE AT IF YOU CAN NOT AFFORD TO SEE A PHYSICIAN YOU CAN CHOSE FROM THE FOLLOWING [facility] [address] [facility] [address] [facility]. [facility] [address] [facility] [address] [facility] [address] [facility]. [facility] [address] Additional Instructions: FOLLOW UP WITH YOUR PRIMARY CARE PHYSICIAN TOMORROW.Return to this facility if you are not improving as expected. CHRISTIANA WHEELER PA-C Sep 17, 2018 14:14
== END 2018-09-17 14:05 | disposition home or self-care (01) ==
LOC: FTE 12:15
DX: N39.0 Urinary tract infection, site not specified (principal); I10 Essential (primary) hypertension; J45.909 Unspecified asthma, uncomplicated
CPT/HCPCS: 81003; 99282

== ENCOUNTER 2018-10-14 05:22 | Emergency (ER) | payer BC ==
[~2018-10-14] VITALS: Ht 160 cm; Wt 77.2 kg
[~2018-10-14 05:22] MED LIST changes: +NITR-58 PO
[2018-10-14 05:34] VITALS: Ht 160 cm; Wt 77.2 kg
[2018-10-14] MEDS ORDERED: ONDANSETRON 4 MG INJ IV STA (07:29)
[2018-10-14] MEDS ORDERED: HYDROmorphONE 1 MG/ML SYG IV STA (07:29)
[2018-10-14] MEDS ORDERED: IOHEXOL 300MG/ML 150 ML BTL ONE (08:33)
[2018-10-14] MEDS ORDERED: SOD CHLORIDE 0.9% 100 ML ONE (08:33)
--- NOTE | 2018-10-14 10:16 | ERD ---
ER Documentation Chief Complaint Chief Complaint abdominal pain x 4 days HPI This is a 58-year-old female who is complaining of pain in her epigastric and bilateral lower quadrants with diarrhea today. Pain is crampy and intermittent. No nausea vomiting no fever. No history of gallstones. No back pain no hematuria or dysuria ROS All systems reviewed and are negative except as per history of present illness. Medications Home Meds Reported Medications Ergocalciferol (Vitamin D2) (VITAMIN D2) 50,000 Unit Capsule, [address] UNIT PO Q7D, CAP 10/14/18 Lisinopril* (Lisinopril*) 10 Mg Tablet, 10 MG PO DAILY, #30 TAB 10/14/18 Discontinued Reported Medications Simvastatin (Simvastatin) 20 Mg Tablet, 20 MG PO 04/02/15 Hydrochlorothiazide* (Hydrochlorothiazide*) 12.5 Mg Tablet, 12.5 MG PO DAILY 04/02/15 Discontinued Scripts Nitrofurantoin Monohyd Macrocr* (Macrobid*) 100 Mg Capsr, 100 MG PO BID for 14 Days, CAP Prov:CHRISTIANA WHEELER PA-C 09/17/18 Cephalexin* (Keflex*) 500 Mg Capsule, 500 MG PO BID for 7 Days, CAP Prov:MARIA C SYED 09/24/17 Hydrocodone/Acetaminophen ([place] 5-325 Tablet) 1 Each Tablet, 1 EACH PO Q6, #8 TAB Prov:SHERMAN BARRETO PA-C 08/22/16 Ibuprofen* (Motrin*) 600 Mg Tab, 600 MG PO Q6, #20 TAB Prov:SHERMAN BARERTO PA-C 08/22/16 Ibuprofen* (Motrin*) 600 Mg Tab, 600 MG PO Q8 for PAIN, #30 TAB Prov:MICHELLE CASTREJON MD 08/12/16 Cephalexin* (Keflex*) 500 Mg Capsule, 500 MG PO TID for 5 Days, CAP Prov:MICHELLE CASTREJON MD 08/12/16 Hydrocodone Bit-Acetaminophen* ([place]*) 5-325 Mg Tab, 1 TAB PO Q6 PRN for PAIN, #10 TAB Prov:KAMILLE RUBIO PA-C 08/31/15 Acetaminophen* (Tylophen*) 500 Mg Capsule, 500 MG PO Q6H PRN for PAIN, #30 TAB 0 Refills Prov:ROSANGELA STANFORD PA-C 05/09/15 Sodium Chloride (Saline Nasal [place]) 45 Ml [place], 45 ML NS TID, #1 SPRAY 2 Refills Prov:ROSANGELA STANFORD PA-C 05/09/15 Famotidine* (Pepcid*) 20 Mg Tablet, 20 MG PO BID for 4 Days, TAB Prov:CHRISTIANA WHEELER PA-C 04/06/15 Acetaminophen* (Tylenol*) 325 Mg Tablet, 2 TAB PO Q6 PRN for PAIN AND OR ELEVATED TEMP, #20 TAB Prov:CHRISTIANA WHEELER PA-C 04/06/15 Electrolyte,Oral (Pedialyte) 1,000 Ml Solution, 100 ML PO Q6 PRN for vomiting, #100 ML Prov:CHRISTIANA WHEELER PA-C 04/06/15 Ciprofloxacin Hcl* (Ciprofloxacin Hcl*) 500 Mg Tablet, 500 MG PO BID for 7 Days, TAB Prov:CHRISTIANA WHEELER PA-C 04/06/15 Ondansetron Hcl* (Zofran*) 4 Mg Tablet, 4 MG PO Q6H for NAUSEA AND/OR VOMITING, #30 TAB Prov:CHRISTIANA WHEELER PA-C 04/06/15 Acetaminophen* (Tylenol*) 325 Mg Tablet, 2 TAB PO Q8 PRN for PAIN AND OR ELEVATED TEMP, #20 TAB Prov:ERICKA LOPEZ MD 04/02/15 Hydrochlorothiazide* (Hydrochlorothiazide*) 25 Mg Tab, 25 MG PO DAILY, #30 TAB Prov:ERICKA LOPEZ MD 04/02/15 Allergies Allergies: Coded Allergies: No Known Drug Allergies (Verified Allergy, Mild, 10/14/18) PMhx/Soc History of Surgery: No Hx Neurological Disorder: No Hx Respiratory Disorders: Yes (ASTHMA ) Hx Cardiac Disorders: Yes (HTN) Hx Psychiatric Problems: No Hx Miscellaneous Medical Probl: No (high cholestrol) Hx Alcohol Use: No Hx Substance Use: No Hx Tobacco Use: No Smoking Status: Never smoker FmHx Family History: No coronary disease Physical Exam Vitals Vital Signs Date Temp Pulse Resp B/P (MAP) Pulse Ox O2 O2 Flow FiO2 Time Delivery Rate 10/14/18 80 17 134/74 98 Room Air 10:33 (94) 10/14/18 98.3 79 18 140/67 97 05:34 (91) Physical Exam Const: Well-developed, well-nourished Head: Atraumatic, normocephalic Eyes: Normal Conjunctiva, PERRLA, EOMI, normal sclera, no nystagmus ENT: Normal External Ears, Nose and Mouth, moist mucus membranes. Neck: Full range of motion. No meningismus, no lymphadenopathy. Resp: Clear to auscultation bilaterally, no wheezing, rhonchi, rales Cardio: Regular rate and rhythm, no murmurs, S1 S2 present Abd: Soft, epigastric mild to moderate tenderness, bilateral lower quadrant tenderness, non distended. Normal bowel sounds, no guarding or rebound, no pulsitile abdominal masses or bruits Skin: No petechiae or rashes, no ecchymosis , no maculopapular rash Back: No midline or flank tenderness Ext: No cyanosis, or edema, FROM x 4, normal inspection, neurovascularly intact x 4 Neur: Awake and alert, STR 5/5 x 4, sensation intact x 4, no focal findings, cerebellum intact Psych: Normal Mood and Affect Result Diagram: 10/14/1872410/14/18724 Results 24 hrs Laboratory Tests Test 10/14/18 07:25 10/14/18 07:39 White Blood Count 8.2 10^3/ul Red Blood Count 5.00 10^6/ul Hemoglobin 13.7 g/dl Hematocrit 43.0 % Mean Corpuscular Volume 86.0 fl Mean Corpuscular Hemoglobin 27.4 pg Mean Corpuscular Hemoglobin Concent 31.9 g/dl Red Cell Distribution Width 13.2 % Platelet Count 320 10^3/UL Mean Platelet Volume 9.5 fl Immature Granulocytes % 0.200 % Neutrophils % 83.9 % Lymphocytes % 10.8 % Monocytes % 4.9 % Eosinophils % 0.1 % Basophils % 0.1 % Nucleated Red Blood Cells % 0.0 /100WBC Immature Granulocytes # 0.020 10^3/ul Neutrophils # 6.9 10^3/ul Lymphocytes # 0.9 10^3/ul Monocytes # 0.4 10^3/ul Eosinophils # 0.0 10^3/ul Basophils # 0.0 10^3/ul Nucleated Red Blood Cells # 0.0 10^3/ul Sodium Level 141 mmol/L Potassium Level 3.9 mmol/L Chloride Level 101 mmol/L Carbon Dioxide Level 30 mmol/L Anion Gap 10 Blood Urea Nitrogen 17 mg/dl Creatinine 0.73 mg/dl Est Glomerular Filtrat Rate mL/min > 60 mL/min Glucose Level 100 mg/dl Calcium Level 9.8 mg/dl Total Bilirubin 0.4 mg/dl Direct Bilirubin 0.00 mg/dl Indirect Bilirubin 0.4 mg/dl Aspartate Amino Transf (AST/SGOT) 32 IU/L Alanine Aminotransferase (ALT/SGPT) 29 IU/L Alkaline Phosphatase 125 IU/L Total Protein 8.3 g/dl Albumin 4.6 g/dl Globulin 3.70 g/dl Albumin/Globulin Ratio 1.24 Lipase 103 U/L Bedside Urine pH (LAB) 7.0 Bedside Urine Protein (LAB) Negative Bedside Urine Glucose (UA) Negative Bedside Urine Ketones (LAB) Negative Bedside Urine Blood 1+ Bedside Urine Nitrite (LAB) Negative Bedside Urine Leukocyte Esterase (L 1+ Current Medications Medications Dose Sig/Sallie Start Time Status Last (Trade) Ordered Route PRN Stop Time Admin Dose Reason Admin 1 mg ONCE STAT 10/14/18 DC 10/14/18 Hydromorphone IV 07:29 07:36 HCl 10/14/18 07:31 (Dilaudid) Ondansetron 4 mg ONCE STAT 10/14/18 DC 10/14/18 HCl (Zofran IV 07:29 07:36 Inj) 10/14/18 07:31 IV Flush 10 ml STK-MED 10/14/18 DC 10/14/18 (NS 10 ml) ONCE .ROUTE 08:33 09:06 10/14/18 08:34 Sodium 100 ml @ ud STK-MED 10/14/18 DC 10/14/18 Chloride ONCE .ROUTE 08:33 09:06 10/14/18 08:34 Iohexol 150 ml STK-MED 10/14/18 DC 10/14/18 (Omnipaque ONCE .ROUTE 08:33 09:07 300mg/ ml) 10/14/18 08:34 Procedures/MDM DIAGNOSTIC IMAGING REPORT Patient: TRAVIS ROE : 1960 Age: 58 Sex: F MR #: [id number] DOS: 10/14/18 0729 Ordering MD: DOMO MORLEY DO Location: E/R Room/Bed: PROCEDURE: US Abdomen. CLINICAL INDICATION: abdominal pain TECHNIQUE: Multiple real-time images were acquired of the patient's right upper quadrant abdomen and retroperitoneum utilizing a high resolution transducer. COMPARISON: US ABDOMEN 04/06/2015 FINDINGS: The liver demonstrates normal echogenicity. The liver is normal in size and no focal solid lesions are seen. The liver measures 15.3 cm in length. The portal vein is patent with normal direction of flow. No intrahepatic biliary dilatation is seen. No gallstones are identified within the gallbladder. There is no pericholecystic fluid or gallbladder wall thickening. The common bile duct measures 3 mm in maximal dimension. The visualized portions of the pancreas are unremarkable. The tail of the pancreas is not seen. No free fluid is identified. The right kidney is normal in size, and demonstrate normal echogenicity and cortical thickness. The right kidney measures 9.3 cm in long dimension. There is no evidence of hydronephrosis. There are no kidney stones. RPTAT: AA IMPRESSION: Unremarkable right upper quadrant abdominal ultrasound. .Martinez Morgan MD, MD Date Time Electronically viewed and signed by .Martinez Morgan MD, on 10/14/2018 08:09 .S/ CC: DOMO MORLEY DO [id number] CT abdomen demonstrates circumferential wall thickening and mucosal hyperenhancement of the terminal ileum, compatible with ileitis. Consider infectious or inflammatory etiology such as Crohn's disease. Small hiatal hernia. Enlarged liver. Patient's pain may be from ileitis and will need to get a GI consult with colonoscopy. No evidence of gallstones and blood work looks relatively unre markable. Give her a copy of her CAT scan and she can follow-up with GI and we will treat with Cipro Flagyl and pain medication Departure Diagnosis: Primary Impression: Ileitis, terminal Digestive disease complication type: unspecified complication Qualified Codes: K50.019 - Crohn's disease of small intestine with unspecified complications Condition: Stable DOMO MORLEY DO October 14, 2018 10:16
[2018-10-14] MEDS ORDERED: LISI10TA2 PO (10:24)
[2018-10-14] MEDS ORDERED: ERGO500013 PO (10:25)
[2018-10-14] MEDS ORDERED: METR500T PO (11:51)
[2018-10-14] MEDS ORDERED: HYDR-3980 PO (11:51)
[2018-10-14] MEDS ORDERED: CIPR500T4 PO (11:51)
[2018-10-14 12:19] VITALS: BP 117/98; PULSE 79; RESP 17
== END 2018-10-14 12:20 | disposition home or self-care (01) ==
LOC: E/R 05:22
DX: K50.019 Crohn's disease of small intestine with unspecified complications (principal); I10 Essential (primary) hypertension; J45.909 Unspecified asthma, uncomplicated
CPT/HCPCS: 36415; 74177; 76705; 80053; 81003; 83690; 85025; 96374; 96375; 99285; J1170; J2405; Q9967; Z7610

== ENCOUNTER 2018-11-18 22:49 | Emergency (ER) | payer BC ==
[~2018-11-18] VITALS: Ht 162.6 cm; Wt 78.0 kg
[~2018-11-18 22:49] MED LIST changes: -ACET325T33 PO; -ACET500C5 PO; -CEPH-443 PO; -ELEC100080 PO; +ERGO500013 PO; -FAMO-96 PO; -HYDR-3498 PO; +HYDR-3980 PO; -HYDR-4011 PO; -HYDR12.58 PO; -HYDR25TA6 PO; -IBUP-1542 PO; +LISI10TA2 PO; +METR500T PO; -NITR-58 PO; -ONDA4TAB8 PO; -SIMV20TA20 PO; -SODI44SP11 NS
[2018-11-18 23:10] VITALS: Ht 162.6 cm; Wt 78.0 kg
[2018-11-19] MEDS ORDERED: morphine 4 MG/ML VIAL IV STA (00:43)
[2018-11-19] MEDS ORDERED: ONDANSETRON 4 MG INJ IV STA (00:43)
[2018-11-19] MEDS ORDERED: SOD CHLORIDE 0.9% 1,000 ML IV STA (00:43)
--- NOTE | 2018-11-19 03:55 | ERD ---
ER Documentation Chief Complaint Chief Complaint AP WITH DYSURIA, DENIES VAGINAL BLEEDING X 1 DAY HPI This is a very pleasant 62 female complains of vaginal spotting dysuria abdominal pain. Is been going on for the past 2 days. She is burning when she urinates. Along with urgency and frequency. Denies any fevers chills nausea v omiting. Denies any other current complaints. ROS All systems reviewed and are negative except as per history of present illness. Medications Home Meds Reported Medications Lisinopril* (Lisinopril*) 10 Mg Tablet, 10 MG PO DAILY, #30 TAB 10/14/18 Discontinued Reported Medications Ergocalciferol (Vitamin D2) (VITAMIN D2) 50,000 Unit Capsule, 67687 UNIT PO Q7D, CAP 10/14/18 Discontinued Scripts Hydrocodone/Acetaminophen ([place] 10-325 Tablet) 1 Each Tablet, 1 TAB PO Q6H PRN for PAIN, #16 TAB Prov:GEREMIASOSYOSVANYSTOLOS A. DO 10/14/18 Ciprofloxacin Hcl* (Ciprofloxacin Hcl*) 500 Mg Tablet, 500 MG PO BID for 7 Days, TAB Prov:LEKKOS,APOSTOLOS A. DO 10/14/18 Metronidazole* (Flagyl*) 500 Mg Tablet, 500 MG PO TID for 7 Days, TAB Prov:LEKKOS,APOSTOLOS A. DO 10/14/18 Allergies Allergies: Coded Allergies: No Known Drug Allergies (Verified Allergy, Mild, 11/19/18) PMhx/Soc History of Surgery: No Hx Neurological Disorder: No Hx Respiratory Disorders: Yes (ASTHMA ) Hx Cardiac Disorders: Yes (HTN) Hx Psychiatric Problems: No Hx Miscellaneous Medical Probl: No (high cholestrol) Hx Alcohol Use: No Hx Substance Use: No Hx Tobacco Use: No Smoking Status: Never smoker Physical Exam Vitals Vital Signs Date Temp Pulse Resp B/P (MAP) Pulse Ox O2 O2 Flow FiO2 Time Delivery Rate 11/19/18 64 22 116/67 98 Room Air 03:42 (83) 11/19/18 58 13 129/84 97 Room Air 03:00 (99) 11/19/18 60 16 108/69 95 Room Air 02:30 (82) 11/19/18 64 16 104/61 94 Room Air 02:00 (75) 11/19/18 62 16 106/68 94 Room Air 01:30 (81) 11/19/18 62 16 120/68 99 Room Air 01:00 (85) 11/18/18 97.8 67 18 135/65 96 23:10 (88) Physical Exam Const: No acute distress Head: Atraumatic Eyes: Normal Conjunctiva ENT: Normal External Ears, Nose and Mouth. Neck: Full range of motion. No meningismus. Resp: Clear to auscultation bilaterally Cardio: Regular rate and rhythm, no murmurs Abd: Soft, non tender, non distended. Normal bowel sounds Skin: No petechiae or rashes Back: No midline or flank tenderness Ext: No cyanosis, or edema Neur: Awake and alert Psych: Normal Mood and Affect Result Diagram: 11/19/186 11/19/18 0106 Results 24 hrs Laboratory Tests Test 11/19/18 01:06 11/19/18 01:31 White Blood Count 6.5 10^3/ul Red Blood Count 4.41 10^6/ul Hemoglobin 12.0 g/dl Hematocrit 38.6 % Mean Corpuscular Volume 87.5 fl Mean Corpuscular Hemoglobin 27.2 pg Mean Corpuscular Hemoglobin Concent 31.1 g/dl Red Cell Distribution Width 13.5 % Platelet Count 304 10^3/UL Mean Platelet Volume 9.5 fl Immature Granulocytes % 0.300 % Neutrophils % 49.4 % Lymphocytes % 40.9 % Monocytes % 7.4 % Eosinophils % 1.7 % Basophils % 0.3 % Nucleated Red Blood Cells % 0.0 /100WBC Immature Granulocytes # 0.020 10^3/ul Neutrophils # 3.2 10^3/ul Lymphocytes # 2.6 10^3/ul Monocytes # 0.5 10^3/ul Eosinophils # 0.1 10^3/ul Basophils # 0.0 10^3/ul Nucleated Red Blood Cells # 0.0 10^3/ul Sodium Level 137 mmol/L Potassium Level 4.0 mmol/L Chloride Level 100 mmol/L Carbon Dioxide Level 31 mmol/L Anion Gap 6 Blood Urea Nitrogen 21 mg/dl Creatinine 0.83 mg/dl Est Glomerular Filtrat Rate mL/min > 60 mL/min Glucose Level 96 mg/dl Calcium Level 9.4 mg/dl Total Bilirubin 0.4 mg/dl Direct Bilirubin 0.00 mg/dl Indirect Bilirubin 0.4 mg/dl Aspartate Amino Transf (AST/SGOT) 26 IU/L Alanine Aminotransferase (ALT/SGPT) 28 IU/L Alkaline Phosphatase 98 IU/L Total Protein 7.4 g/dl Albumin 4.2 g/dl Globulin 3.20 g/dl Albumin/Globulin Ratio 1.31 Lipase 160 U/L Bedside Urine pH (LAB) 5.5 Bedside Urine Protein (LAB) 1+ Bedside Urine Glucose (UA) Negative Bedside Urine Ketones (LAB) Trace Bedside Urine Blood Negative Bedside Urine Nitrite (LAB) Negative Bedside Urine Leukocyte Esterase (L 1+ Current Medications Medications Dose Sig/Sallie Start Time Status Last (Trade) Ordered Route PRN Stop Time Admin Dose Reason Admin Sodium 1,000 ml @ Q1H STAT 11/19/18 DC 11/19/18 Chloride 1,000 mls/hr IV 00:43 01:12 11/19/18 01:42 Morphine 4 mg ONCE STAT 11/19/18 DC 11/19/18 Sulfate IV 00:43 01:12 (morphine) 11/19/18 00:45 Ondansetron 4 mg ONCE STAT 11/19/18 DC 11/19/18 HCl (Zofran IV 00:43 01:12 Inj) 11/19/18 00:45 Procedures/MDM Patient's gastrointestinal symptoms have stabilized while in the department. No evidence of severe dehydration, sepsis, or surgical abdomen. Extensive discussion with family and patient that occult disease cannot be ruled out. 8 hour recheck for repeat abdominal exam is planned. Departure Diagnosis: Primary Impression: UTI (urinary tract infection) Urinary tract infection type: site unspecified Hematuria presence: with hematuria Qualified Codes: N39.0 - Urinary tract infection, site not specified; R31.9 - Hematuria, unspecified Condition: Stable JADIEL WELLINGTON Nov 19, 2018 03:55
[2018-11-19] MEDS ORDERED: PHEN-538 PO (03:56)
[2018-11-19] MEDS ORDERED: DOCU-144 PO (03:56)
[2018-11-19] MEDS ORDERED: CIPR500T4 PO (03:56)
[2018-11-19 05:30] VITALS: BP 107/70; PULSE 68; RESP 22
== END 2018-11-19 05:36 | disposition home or self-care (01) ==
LOC: FTE 22:49 → E/R 11-19 05:36
DX: N39.0 Urinary tract infection, site not specified (principal); I10 Essential (primary) hypertension; J45.909 Unspecified asthma, uncomplicated
CPT/HCPCS: 36415; 74176; 80053; 81001; 83690; 85025; 87086; 96361; 96374; 96375; 99285; J2270; J2405; J7030; 81003